=== PATIENT | female | born 1970 | race Asian ===

== ENCOUNTER 2018-11-19 05:40 | Day surgery (SDC) | payer OTHER ==
[2018-11-19] MEDS ORDERED: GENTAMICIN 100 MG/50 ML NS IVPB (06:00)
[2018-11-19] MEDS: LACTATED RINGER'S 1,000 ML IV (06:00)
[2018-11-19] MEDS ORDERED: SUCCINYLCHOLINE CHLORIDE 100 MG/5 ML SYG IV (07:30)
[2018-11-19] MEDS ORDERED: NEOSTIGMINE 3 MG/3 ML SYRINGE (07:30)
[2018-11-19] MEDS ORDERED: ROCURONIUM 50 MG INJ (07:30)
[2018-11-19] MEDS ORDERED: GLYCOPYRROLATE 0.4 MG INJ (07:30)
[2018-11-19] MEDS ORDERED: LIDOCAINE 2% (SDV) 5 ML INJ (07:30)
[2018-11-19] MEDS ORDERED: MEPERIDINE 100 MG INJ (07:30)
[2018-11-19] MEDS ORDERED: PROPOFOL 20 ML (07:30)
[2018-11-19] MEDS ORDERED: CEFAZOLIN 1 GM INJ (07:35)
[2018-11-19] MEDS ORDERED: MIDAZOLAM 1 MG/ML 2 ML INJ (07:35)
[2018-11-19] MEDS ORDERED: ONDANSETRON 4 MG INJ (07:48)
[2018-11-19] MEDS ORDERED: METOCLOPRAMIDE 10 MG INJ (07:48)
[2018-11-19] MEDS: CEFAZOLIN 2 GM/50 ML (PMX) 50 ML IVPB (08:09)
[2018-11-19] MEDS ORDERED: GENTAMICIN 80 MG INJ (08:30)
[2018-11-19] MEDS: GENTAMICIN 160 MG in DEXTROSE 5% 100 ML IVPB (08:34)
[2018-11-19] MEDS ORDERED: BUPIVACAINE 0.25% (MPF) 30 ML INJ (09:20)
[2018-11-19] MEDS ORDERED: LIDOCAINE 1%/EPI 30 ML INJ (09:20)
[2018-11-19] MEDS ORDERED: morphine 4 MG/ML VIAL IV (09:30)
[2018-11-19] MEDS ORDERED: morphine 2 MG INJ IV (09:30)
[2018-11-19] MEDS ORDERED: ZOLPIDEM 5 MG TAB PO (09:30)
[2018-11-19] MEDS: BUPIVACAINE 0.25% (MPF) 30 ML INJ (09:47)
[2018-11-19] MEDS: GENTAMICIN 80 MG INJ (09:48)
[2018-11-19] MEDS: LIDOCAINE 1%/EPI 30 ML INJ (09:48)
[2018-11-19] MEDS: POLYMYXIN/BACITRACIN 1L IRRIG IRR (09:48)
[2018-11-19] MEDS: MUPIROCIN 2% 15 GM CR (09:52)
[2018-11-19] MEDS ORDERED: METOCLOPRAMIDE 10 MG INJ IV (10:00)
[2018-11-19] MEDS ORDERED: MIDAZOLAM 1 MG/ML 2 ML INJ IV (10:00)
[2018-11-19] MEDS ORDERED: HYDROmorphONE 1 MG/5 ML IV SYRINGE IV ×2 (10:00)
[2018-11-19] MEDS ORDERED: DIPHENHYDRAMINE 50 MG INJ IV (10:00)
[2018-11-19] MEDS ORDERED: FENTAnyl 50 MCG/ML VIAL IV ×2 (10:00)
[2018-11-19] MEDS ORDERED: SILVER SULFADIAZINE 1% 25 GM CR TOP (10:00)
[2018-11-19] MEDS ORDERED: KETOROLAC 30 MG INJ (10:18)
[2018-11-19] MEDS: FENTAnyl 50 MCG/ML VIAL IV (11:19)
[2018-11-19] MEDS: ONDANSETRON 4 MG INJ IV (11:19)
[2018-11-19] MEDS: HYDROmorphONE 1 MG/5 ML IV SYRINGE IV (11:24)
[2018-11-19] MEDS: MEPERIDINE 25 MG INJ IV (11:24)
[2018-11-19] MEDS: D5W-0.45 NACL + KCL 20 MEQ 1,000 ML IV ×2 (18:00→19:27)
[2018-11-19] MEDS: HYDROCODONE/APAP (5/325) TAB PO (18:47)
[2018-11-20] MEDS: HYDROCODONE/APAP (10/325) TAB PO ×2 (00:36→07:41)
[2018-11-20] MEDS: D5W-0.45 NACL + KCL 20 MEQ 1,000 ML IV (05:28)
[2018-11-20] MEDS: PANTOPRAZOLE 40 MG INJ IV (05:28)
[2018-11-20] MEDS: HYDROCODONE/APAP (5/325) TAB PO (11:03)
== END 2018-11-20 11:26 | disposition home or self-care (01) ==
LOC: SDS 05:40 → REC 17:49 → SDS 05:40 → MS1 09:37 → REC 09:32 → MS1 17:49 → SDS 11-20 11:26
DX: C50.211 Malignant neoplasm of upper-inner quadrant of right female breast (principal); N64.89 Other specified disorders of breast
CPT/HCPCS: 15777; 80053; 85025; 88309; 88341; 88342